=== PATIENT | female | born 1935 | race African-American/Black ===

== ENCOUNTER 2021-03-21 11:22 | Outpatient (CLI) | payer MEDICARE | END 2021-03-21 11:23 | disposition home or self-care (01) | LOC: BICRAD 11:22 | PROVIDERS: ATTEND Family Medicine | DX: M19.042 Primary osteoarthritis, left hand (principal); M79.89 Other specified soft tissue disorders ==

== ENCOUNTER 2022-06-13 15:12 | Outpatient (CLI) | payer MEDICARE | END 2022-06-13 15:13 | disposition home or self-care (01) | LOC: BICULT 15:12 | PROVIDERS: ATTEND Family Medicine | DX: R22.1 Localized swelling, mass and lump, neck (principal) | CPT/HCPCS: 76536 ==

== ENCOUNTER 2022-07-12 08:10 | Outpatient (CLI) | payer MEDICARE ==
[2022-07-12] MEDS ORDERED: Iopamidol 370 76% 100 ML VIAL ONE (09:22)
== END 2022-07-12 08:11 | disposition home or self-care (01) ==
LOC: CT 08:10
PROVIDERS: ATTEND Family Medicine
DX: R22.1 Localized swelling, mass and lump, neck (principal)
CPT/HCPCS: 70491; 82565; Q9967

== ENCOUNTER 2024-02-12 08:40 | Outpatient (CLI) | payer MEDICARE | END 2024-02-12 08:41 | disposition home or self-care (01) | LOC: BICRAD 08:40 | PROVIDERS: ATTEND Internal Medicine Gastroenterology | DX: Z18.89 Other specified retained foreign body fragments (principal) | CPT/HCPCS: 74018 ==